=== PATIENT | female | born 2000 ===

== ENCOUNTER 2022-04-19 22:57 | Inpatient (IN) ==
[2022-04-19] MEDS ORDERED: MEPERIDINE 50 MG/1 ML VIAL IV PRN (23:06)
[2022-04-19] MEDS ORDERED: miSOPROStoL 200 MCG TABLET RECTAL PRN (23:06)
[2022-04-19] MEDS ORDERED: METHYLERGONOVINE 0.2 MG/1 ML AMP IM PRN (23:06)
[2022-04-19] MEDS ORDERED: OXYTOCIN/LR 20 UNIT/1,000 ML BAG IV ONE (23:06)
[2022-04-19] MEDS ORDERED: ONDANSETRON 4 MG/2 ML VIAL IV PRN (23:06)
[2022-04-19] MEDS ORDERED: CARBOPROST TROMETHAMINE 250 MCG/ML AMP IM PRN (23:06)
[2022-04-19] MEDS ORDERED: LACTATED RINGERS 500 ML IV PRN (23:06)
[2022-04-19] MEDS ORDERED: TRANEXAMIC ACID 1,000 MG in SODIUM CHLORIDE 0.9% 100 ML IV PRN (23:06)
[2022-04-20 00:13] LABS: Basophils % 0.1 % (0.0-0.8); Eosinophils # 0.2 10*3/uL (0.0-0.87); Eosinophils % 3.2 % (0.00-10.9); Hematocrit 35.6 VOL% (35.7-47.0); Hemoglobin 11.7 GM/DL (12.0-16.0); Immature Granulocytes % 0.3 %; Immature Granulocytes Absolute 0.02 #; Lymphocytes # 1.4 10*3/uL (1.4-4.0); Lymphocytes % 20.2 % (21.3-54.2); Mean Corpuscular HGB Conc 32.9 GM/DL (32-36); Mean Corpuscular Volume 89.2 FL (87-102); Mean Platelet Volume 11.5 FL (9.6-12.0); Monocytes # 0.6 10*3/uL (0.11-0.8); Monocytes % 8.1 % (1.7-12.7); Neutrophils % 68.1 % (38.7-73.9); Platelet Count 280 T/CUMM (130-400); Red Blood Count 3.99 MC/CUMM (3.8-5.5); Red Cell Distribution Width 13.5 % (9.3-17.3); White Blood Count 6.9 T/CUMM (4-12)
[2022-04-20] MEDS ORDERED: OXYTOCIN/LR 20 UNIT/1,000 ML BAG IV SCH (04:45)
[2022-04-20] MEDS: LACTATED RINGERS 1,000 ML IV SCH (04:51)
[2022-04-20] MEDS: BUTORPHANOL 2 MG/ML VIAL IV PRN ×2 (10:59→12:59)
[2022-04-20] MEDS ORDERED: ePHEDrine 50 MG/ML VIAL IV PRN (12:27)
[2022-04-20] MEDS ORDERED: LACTATED RINGERS 1,000 ML IV ONE (12:27)
[2022-04-20] MEDS ORDERED: PROMETHAZINE 25 MG/1 ML VIAL IM ONE (12:27)
[2022-04-20] MEDS ORDERED: FAMOTIDINE 20 MG/2 ML VIAL IV ONE (12:27)
[2022-04-20] MEDS ORDERED: ONDANSETRON 4 MG/2 ML VIAL IV ONE (12:27)
[2022-04-20] MEDS ORDERED: diphenhydrAMINE 50 MG/1 ML VIAL IV PRN ×2 (12:27)
[2022-04-20] MEDS ORDERED: hydrOXYzine HCL 25 MG/1 ML VIAL IM PRN (12:27)
[2022-04-20] MEDS ORDERED: NALOXONE 0.4 MG/ML VIAL IV PRN (12:27)
[2022-04-20] MEDS ORDERED: CITRIC ACID/SODIUM CITRATE 30 ML UDCUP PO ONE (12:27)
[2022-04-20 13:58] LABS: Mucus,Urine Occasional /LPF (Occasional); RBC,Urine 2 /HPF (0-4); Squamous Epithelial Cell,Urine Occasional /HPF (0-10)
[2022-04-20 14:00] LABS: Bilirubin,Urine Negative (Negative); Blood, Urine Trace mg/dL (Negative); Glucose,Urine (UA) Negative (Negative); Ketones,Urine Negative (Negative); Nitrite,Urine Negative (Negative); Protein,Urine Negative (Negative); Urine Appearance Clear (Clear); Urine Color Yellow (Yellow); Urine Urobilinogen 0.2 eU/dL (<2.0)
[2022-04-20] MEDS: fentaNYL 2 MCG/ROPIV 0.2% EPID 100 ML EPIDURAL SCH (21:59)
[2022-04-21] MEDS ORDERED: FAMOTIDINE 20 MG/2 ML VIAL IV ONE (05:09)
[2022-04-21] MEDS ORDERED: CITRIC ACID/SODIUM CITRATE 30 ML UDCUP PO ONE (05:09)
[2022-04-21] MEDS ORDERED: TRANEXAMIC ACID 1,000 MG in SODIUM CHLORIDE 0.9% 100 ML IV PRN (05:09)
[2022-04-21] MEDS ORDERED: miSOPROStoL 200 MCG TABLET RECTAL PRN (05:09)
[2022-04-21] MEDS ORDERED: OXYTOCIN/LR 20 UNIT/1,000 ML BAG IV ONE ×2 (05:09→14:30)
[2022-04-21] MEDS ORDERED: CARBOPROST TROMETHAMINE 250 MCG/ML AMP IM PRN (05:09)
[2022-04-21] MEDS ORDERED: METHYLERGONOVINE 0.2 MG/1 ML AMP IM PRN (05:09)
[2022-04-21] MEDS: LACTATED RINGERS 1,000 ML IV SCH (05:38)
[2022-04-21] MEDS ORDERED: OXYTOCIN 10 UNIT/ML VIAL IM ONE (05:46)
[2022-04-21] MEDS ORDERED: OXYTOCIN/LR 30 UNIT/1,000 ML BAG IV ONE (05:46)
[2022-04-21] MEDS: fentaNYL 2 MCG/ROPIV 0.2% EPID 100 ML EPIDURAL SCH (07:17)
[2022-04-21] MEDS ORDERED: LIDOCAINE MPF 2% /EPI 20 ML VIAL ONE (08:25)
[2022-04-21] MEDS ORDERED: ONDANSETRON 4 MG/2 ML VIAL ONE (08:57)
[2022-04-21] MEDS ORDERED: ceFAZolin 2,000 MG/50 ML DUPLEX IV ONE (09:06)
[2022-04-21] MEDS ORDERED: buprenorphine HCL 0.3 MG/ML VIAL ONE (09:24)
[2022-04-21 09:42] LABS: Cord Venous Blood HCO3 23.4 MMOL/L; Cord Venous Blood PCO2 48.2 MMHG; Cord Venous Blood PO2 29.1
[2022-04-21] MEDS: ACETAMINOPHEN 500 MG TABLET PO SCH ×2 (12:22→18:42)
[2022-04-21] MEDS: KETOROLAC 30 MG/1 ML VIAL IV SCH ×2 (12:22→18:42)
[2022-04-21] MEDS ORDERED: ONDANSETRON 4 MG/2 ML VIAL IV PRN (14:30)
[2022-04-21] MEDS ORDERED: RHO(D) IMMUNE GLOBULIN 300 MCG SYRINGE IM ONE (14:30)
[2022-04-21] MEDS ORDERED: LACTATED RINGERS 1,000 ML IV SCH (14:30)
[2022-04-21] MEDS ORDERED: ACETAMINOPHEN 325 MG TABLET PO PRN (14:30)
[2022-04-21 17:12] LABS: Basophils % 0.2 % (0.0-0.8); Eosinophils # 0.1 10*3/uL (0.0-0.87); Eosinophils % 0.8 % (0.00-10.9); Hematocrit 34.3 VOL% (35.7-47.0); Hemoglobin 11.1 GM/DL (12.0-16.0); Immature Granulocytes % 0.2 %; Immature Granulocytes Absolute 0.02 #; Lymphocytes # 1.1 10*3/uL (1.4-4.0); Lymphocytes % 11.6 % (21.3-54.2); Mean Corpuscular HGB Conc 32.4 GM/DL (32-36); Mean Platelet Volume 10.3 FL (9.6-12.0); Monocytes # 0.8 10*3/uL (0.11-0.8); Monocytes % 7.9 % (1.7-12.7); Neutrophils % 79.3 % (38.7-73.9); Platelet Count 198 T/CUMM (130-400); Red Blood Count 3.77 MC/CUMM (3.8-5.5); Red Cell Distribution Width 13.5 % (9.3-17.3); White Blood Count 9.6 T/CUMM (4-12)
[2022-04-21] MEDS: DOCUSATE SODIUM 100 MG CAPSULE PO SCH (21:03)
[2022-04-21] MEDS: SIMETHICONE CHEW 80 MG TABLET PO PRN (21:04)
[2022-04-21] MEDS ORDERED: MEPERIDINE 50 MG/1 ML VIAL IV ONE (22:30)
[2022-04-22] MEDS: KETOROLAC 30 MG/1 ML VIAL IV SCH ×2 (00:23→06:10)
[2022-04-22] MEDS: ACETAMINOPHEN 500 MG TABLET PO SCH ×2 (01:17→07:08)
[2022-04-22 05:49] LABS: Basophils % 0.2 % (0.0-0.8); Eosinophils # 0.3 10*3/uL (0.0-0.87); Eosinophils % 2.3 % (0.00-10.9); Hemoglobin 10.1 GM/DL (12.0-16.0); Immature Granulocytes % 0.3 %; Immature Granulocytes Absolute 0.03 #; Lymphocytes # 1.2 10*3/uL (1.4-4.0); Lymphocytes % 11.3 % (21.3-54.2); Mean Corpuscular HGB Conc 32.6 GM/DL (32-36); Mean Corpuscular Volume 90.4 FL (87-102); Mean Platelet Volume 10.6 FL (9.6-12.0); Monocytes # 0.9 10*3/uL (0.11-0.8); Monocytes % 8.1 % (1.7-12.7); Neutrophils % 77.8 % (38.7-73.9); Platelet Count 206 T/CUMM (130-400); Red Blood Count 3.43 MC/CUMM (3.8-5.5); Red Cell Distribution Width 13.6 % (9.3-17.3); White Blood Count 10.8 T/CUMM (4-12)
[2022-04-22] MEDS: METOCLOPRAMIDE 10 MG TABLET PO SCH ×3 (09:29→23:27)
[2022-04-22] MEDS: MAGNESIUM HYDROXIDE SUSP 30 ML UDCUP PO PRN ×2 (09:29→20:30)
[2022-04-22] MEDS: SIMETHICONE CHEW 80 MG TABLET PO PRN ×2 (09:29→20:30)
[2022-04-22] MEDS: MULTIVITAMIN (PRENATAL) TABLET PO SCH (09:29)
[2022-04-22] MEDS: DOCUSATE SODIUM 100 MG CAPSULE PO SCH ×2 (09:29→20:30)
[2022-04-22] MEDS: IBUPROFEN 800 MG TABLET PO PRN ×2 (12:11→20:29)
[2022-04-23] MEDS: IBUPROFEN 800 MG TABLET PO PRN (03:58)
[2022-04-23] MEDS: METOCLOPRAMIDE 10 MG TABLET PO SCH (08:02)
[2022-04-23] MEDS: MULTIVITAMIN (PRENATAL) TABLET PO SCH (09:43)
[2022-04-23] MEDS: DOCUSATE SODIUM 100 MG CAPSULE PO SCH (09:43)
[2022-04-23 10:43] VITALS: BP 137/75
== END 2022-04-23 12:10 | disposition home or self-care (01) | DRG 540 ==
LOC: N.LD 22:57 → N.OB 04-21 13:15
PROVIDERS: ADMIT Obstetrics & Gynecology; ATTEND Obstetrics & Gynecology
PROC: LDCSECT (ICD-10-PCS; 2022-04-21 09:00)